=== PATIENT | male | born 1975 | race Hispanic/Latino ===

== ENCOUNTER 2024-04-02 05:23 | Emergency (ER) | payer BC ==
[~2024-04-02] VITALS: Ht 170.2 cm; Wt 86.2 kg
[2024-04-02 05:52] LABS: APPEARANCE,URINE CLEAR (CLEAR); BILIRUBIN,URINE NEGATIVE (NEGATIVE); COLOR,URINE YELLOW (YELLOW); GLUCOSE, URINE (UA) 300 mg/dL (NEGATIVE); KETONES,URINE NEGATIVE (NEGATIVE); LEUKOCYTE ESTERASE ,URINE NEGATIVE Leu/uL (NEGATIVE); MUCUS,URINE RARE LPF (None Seen); NITRATE,URINE NEGATIVE (NEGATIVE); OCCULT BLOOD,URINE NEGATIVE (NEGATIVE); PH,URINE 5.5 (5.0-8.0); PROTEIN,URINE 10 mg/dL (NEGATIVE); RBC,URINE 0-1 /HPF (0-1); WBC,URINE 0-1 /HPF (0-1)
[2024-04-02] MEDS: ketOROlac 15MG/ML VIAL (15MG/ML) IM ONE (06:18)
[2024-04-02] MEDS ORDERED: MELO-108 PO (06:28)
[2024-04-02] MEDS ORDERED: LIDO1ADH71 TP (06:28)
[2024-04-02] MEDS ORDERED: DICL20GE TP (06:28)
[2024-04-02] MEDS ORDERED: ORPH100T4 PO (06:28)
[2024-04-02 08:09] VITALS: BP 164/80; PULSE 70; RESP 16; TEMP 98.2; O2SAT 98
== END 2024-04-02 08:14 | disposition home or self-care (01) ==
LOC: EDH 05:23
DX: S33.5XXA Sprain of ligaments of lumbar spine, initial encounter (principal); E11.9 Type 2 diabetes mellitus without complications; E78.5 Hyperlipidemia, unspecified; I10 Essential (primary) hypertension; Z79.899 Other long term (current) drug therapy; X58.XXXA Exposure to other specified factors, initial encounter; Y93.89 Activity, other specified; Y92.89 Other specified places as the place of occurrence of the external cause; Y99.8 Other external cause status
CPT/HCPCS: 99284; 81001; 72110; 96372; J1885

== ENCOUNTER 2024-10-17 03:17 | Emergency (ER) | payer BC ==
[~2024-10-17] VITALS: Ht 170.2 cm; Wt 86.2 kg
[~2024-10-17 03:17] MED LIST: DICL20GE TP; LIDO1ADH71 TP; MELO-108 PO; ORPH100T4 PO
--- NOTE | 2024-10-17 03:40 | ERN ---
General Chief Complaint: Multiple Complaints Stated Complaint: HEADACHE, BACK PAIN Time Seen by MD: 03:35 Source: patient History of Present Illness Initial Comments Patient is a 49-year-old male with a history of hypertension diabetes mellitus and hypercholesterolemia has had a headache for the last 9 hours with back pain. He could not sleep so he came to the hospital. His blood pressure on a monitor is 161/101 and he is little tachycardic. He has no other associated symptoms no fevers chills diarrhea nausea vomiting chest pain or shortness of breath. Timing/Duration: 4-6 hours Severity: mild Allergies: Coded Allergies: No Known Allergies (Unverified Allergy, Unknown, 04/02/24) Home Meds Active Scripts Orphenadrine Citrate (Orphenadrine Citrate) 100 Mg Tablet.er, 100 MG PO BID for back pain, #20 TAB Prov:TANYA GASPAR DO 04/02/24 Meloxicam (Meloxicam) 15 Mg Tablet, 15 MG PO DAILY PRN for PAIN for 10 Days, #10 TAB Prov:TANYA GASPAR DO 04/02/24 Lidocaine (Lidocaine Pain Relief) 4 % Adh..patch, 1 EACH TP BID PRN for PAIN for 10 Days, #10 ADH.PATCH Prov:TANYA GASPAR DO 04/02/24 Diclofenac Sodium (Voltaren Arthritis Pain) 1 % Gel..gram., 20 GM TP TID, #1 TUBE Prov:TANYA GASPAR DO 04/02/24 Past Medical History Past Medical History: Diabetes-Type II, High Cholesterol, Hypertension Medical History Other: NON COMPLIANT WITH MEDICAATIONS Past Surgical History: None Constitutional: (-) chills, (-) diaphoresis, (-) fever, (-) malaise, (-) weakness, (-) other documentation EENTM: (-) eye pain, (-) blurred vision, (-) tearing, (-) double vision, (-) ear pain, (-) ear discharge, (-) nose pain, (-) nose congestion, (-) throat pain, (-) Throat swelling, (-) mouth pain, (-) tooth pain, (-) mouth swelling, (-) other documentation Respiratory: (-) cough, (-) orthopnea, (-) short of breath, (-) stridor, (-) wheezing, (-) other documentation Cardiovascular: (-) chest pain, (-) edema, (-) palpitations, (-) syncope, (-) dyspnea on exertion, (-) other documentation Gastrointestinal/Abdominal: (-) nausea, (-) vomiting, (-) diarrhea, (-) abdominal pain, (-) abdominal distention, (-) constipation, (-) rectal bleeding, (-) dark stool/melena, (-) other documentation Musculoskeletal: (+) back pain Skin: (-) laceration, (-) contusion, (-) abrasion, (-) abscess, (-) rash, (-) change in color, (-) change in hair, (-) change in nails, (-) diaphoresis, (-) dryness, (-) other documentation Neuro: (-) altered mental status, (-) headache, (-) syncope, (-) paralysis, (-) numbness, (-) seizure, (-) pre-existing deficit, (-) tremors, (-) weakness, (-) dizziness, (-) slurred speech, (-) vertigo, (-) other documentation Physical Exam General Appearance: (+) no apparent distress Orientation: (+) alert Head/Face Trauma: No Eye: bilateral eye normal inspection, bilateral eye PERRL, bilateral eye EOMI Ear, Nose, Throat: (+) hearing grossly normal, (+) normal ENT inspection, (+) moist mucous membraine Neck: (+) normal inspection, (+) supple, (+) no JVD Respiratory: (+) chest non-tender, (+) lungs clear, (+) well ventilated Heart: (+) regular, (+) no gallop Vascular: (+) no edema Back Comment Patient's back pain is worse on the right paraspinal muscles in the lumbar region. He has no central lumbar vertebral pain. MDM Patient comes in with a headache and back pain and monitor show hypertension. I will start by giving the patient has some Toradol and some muscle relaxant as well as a L of fluid. I will also give the patient 10 mg of IV hydralazine to help lower his blood pressure. At this point I do not see any reason to order any labs. Patient's low back pain is completely gone in his headache is also 90% better. His systolic blood pressure is still 161 I will give him a 20 mg of IV hydralazine. The hydralazine corrected the patient's blood pressure only transiently so I wrote for clonidine. A recheck of the blood pressure showed that it was systolic 148 so we canceled the clonidine dose and discharge the patient. ED Course Orders Procedure Category Date Status Time Cyclobenzaprine Hcl PHA 10/17/24 Complete (Cyclobenzaprine Hcl 04:00 Lactated Ringers PHA 10/17/24 Complete 1000ml (Lactated 03:40 Ketorolac PHA 10/17/24 Complete Tromethamine 30mg/Ml 04:00 Hydralazine 20mg Inj PHA 10/17/24 Complete (Apresoline 20mg In 05:00 Clonidine Hcl 0.2 Mg PHA 10/17/24 In Process Tablet (Catapres 0. 05:30 Current Medications Medications (Trade) Dose Ordered Sig/Lizabeth Route PRN Reason Start Time Stop Time Status Last Admin Dose Admin Clonidine HCl (CATApres 0.2 MG TAB) 0.2 mg ONCE ONCE PO 10/17/24 05:30 10/17/24 05:31 Cyclobenzaprine HCl (Cyclobenzaprine HCl) 10 mg ONCE ONCE PO 10/17/24 04:00 10/17/24 04:01 DC 10/17/24 03:50 Hydralazine HCl (APRESOLine 20MG INJ) 20 mg ONCE ONCE IV 10/17/24 05:00 10/17/24 05:02 DC 10/17/24 04:42 Ketorolac Tromethamine (toRADol) 30 mg ONCE ONCE IVP 10/17/24 04:00 10/17/24 04:01 DC 10/17/24 03:51 Lactated Ringer's (Lactated Ringers 1000ml) 1,000 ml BOLUS STAT IV 10/17/24 03:40 10/17/24 03:50 DC 10/17/24 03:55 Vital Signs Date Time Temp Pulse Resp B/P (MAP) Pulse Ox O2 Delivery O2 Flow Rate FiO2 10/17/24 05:05 95 16 153/67 97 Room Air* 0 10/17/24 04:40 98 17 167/89 97 Room Air* 0 10/17/24 04:28 100 17 164/88 97 Room Air* 0 10/17/24 03:30 98.8 110 16 161/101 97 Room Air* 0 21 10/17/24 03:18 99.0 115 20 167/108 100 Room Air DX & DISP Disposition: Discharge Departure Impression: Primary Impression: Headache Additional Impression: Hypertension Condition: Stable Additional Instructions: Please take your home medications as prescribed. Your hypertension may have been the cause of your headache and your blood pressure was elevated when he arrived in the emergency room. Please visit your primary care physician as he may need to make adjustments to your blood pressure medications. Referrals: CANDELARIA PEDERSON MD (PCP) KEYONA LOGAN MD October 17, 2024 03:40
[2024-10-17] MEDS: CYCLOBENZAPRINE HCL 10 MG TABLET PO ONE (03:50)
[2024-10-17] MEDS: ketOROlac 30MG VIAL (30MG/ML) IVP ONE (03:51)
[2024-10-17] MEDS: LACTATED RINGERS 1000ML IV STA (03:55)
[2024-10-17] MEDS: hydrALAZine 20MG/ML VIAL IV ONE (04:42)
[2024-10-17] MEDS ORDERED: cloNIDine HCL 0.2 MG TABLET PO ONE (05:30)
[2024-10-17 05:32] VITALS: BP 148/81; PULSE 90; RESP 17; TEMP 98.4; O2SAT 96
== END 2024-10-17 05:46 | disposition home or self-care (01) ==
LOC: EDH 03:17
DX: R51.9 Headache, unspecified (principal); I10 Essential (primary) hypertension; E11.9 Type 2 diabetes mellitus without complications; E78.00 Pure hypercholesterolemia, unspecified; Z79.899 Other long term (current) drug therapy
CPT/HCPCS: 99284; 96374; 96361; 96375; J1885; J7120; J0360